=== PATIENT | male | born 1960 | race Caucasian/White ===

== ENCOUNTER 2023-03-20 13:15 | Observation (INO) | payer OTHER, SELFPAY ==
[2023-03-20] VITALS (29 sets, daily range): BP systolic 110–149; BP diastolic 68–95; PULSE 74–91; RESP 14–24; TEMP 36.6–36.8; O2SAT 93–98; BMI 27.3; BMI 28.1
--- NOTE | 2023-03-20 13:41 | CT_ITS ---
The [address] [address] Patient Name: OSCAR FELTON MRN: [id number] date: 1960 Sex: M Assigned Patient Location: ER Current Patient Location: ER Accession/Order Number: [id number] Exam Date: 03/20/2023 14:10 Report Date: 03/20/2023 15:13 At the request of: ALETHA CARRILLO Procedure: CT chest wo con CT chest wo con, 03/20/2023 2:10 PM EST INDICATION: Fall right wall trauma COMPARISON: No prior CT scan of the chest available for comparison at the time of this dictation. TECHNIQUE: Thin-section axial CT images of the chest were acquired without contrast. Supplemental 2D reformatted images were generated and reviewed as needed. Dose reduction techniques were achieved by using automated exposure control and/or adjustment of mA and/or kV according to patient size and/or use of iterative reconstruction technique. FINDINGS: Heart size within normal limits. Mitral valve replacement. No pericardial effusion. Heavy coronary artery calcification. No aortic aneurysm. No mediastinal, hilar or axillary lymphadenopathy. Calcified granuloma right upper lobe. Subsegmental atelectasis right middle lobe. Elevation of the right hemidiaphragm with atelectasis right lung base. No pleural effusion. No pneumothorax. Air-fluid level within the gastric lumen. Right cortical renal cyst and partially imaged dense right renal nodules. Nondisplaced anterior fractures right third, fourth and fifth ribs. Degenerative disc disease with chronic superior endplate compression deformities T5, T8 and T9 vertebral bodies. CT/CT chest wo con IMPRESSION: 1. Nondisplaced anterior fractures right third, fourth and fifth ribs. No pneumothorax. 2. Right basilar atelectasis. 3. Partially imaged dense right renal nodules. Please refer to concurrent CT of the abdomen and pelvis for further characterization of these findings. Electronically authenticated by: NOREEN ROMERO Date: 03/20/2023 15:13
--- NOTE | 2023-03-20 13:42 | CT_ITS ---
The [address] [address] Patient Name: OSCAR FELTON MRN: [id number] date: 1960 Sex: M Assigned Patient Location: ER Current Patient Location: Accession/Order Number: [id number] Exam Date: 03/20/2023 14:10 Report Date: 03/20/2023 15:00 At the request of: ALETHA CARRILLO Procedure: CT abdomen pelvis wo con EXAMINATION: CT abdomen pelvis wo con, 03/20/2023 2:10 PM EST HISTORY: Fall. COMPARISON: None. TECHNIQUE: CT scan of the abdomen and pelvis was performed without IV contrast. CT dose reduction technique was used, including Automated Exposure Control. FINDINGS: LOWER CHEST: There is mild bilateral symmetric gynecomastia. Elevation of the right hemidiaphragm. Right lower lobe subsegmental atelectasis. LIVER: Unremarkable. GALLBLADDER AND BILIARY SYSTEM: Unremarkable. SPLEEN: Unremarkable. PANCREAS: Unremarkable. ADRENAL GLANDS: Unremarkable. KIDNEYS AND URETERS: No nephrolithiasis or hydronephrosis. There is a hyperdense lesion in the midpole the right kidney measuring 2.9 x 2.6 cm which likely represents a hemorrhagic cyst. Additional adjacent hyperdense lesion in the midpole the right kidney measuring 1 cm. Evaluation of these lesions is limited due to the lack of intravenous contrast. Extensive bilateral perinephric stranding. There is no hydronephrosis. BLADDER: Unremarkable. GASTROINTESTINAL TRACT: There is sigmoid diverticulosis without evidence of diverticulitis. No evidence of bowel obstruction. A normal appendix is visualized. VASCULATURE: The abdominal aorta is normal in caliber. RETROPERITONEUM: No lymphadenopathy. PERITONEUM/MESENTERY: There is mild stranding at the root of the mesentery. No abdominal ascites or lymphadenopathy. PELVIS: Small fat-containing right inguinal hernia. No pelvic ascites or lymphadenopathy. BODY WALL: Small fat-containing umbilical hernia. BONES: There is an acute fracture involving the L1 vertebral body with cortical offset involving the superior and inferior endplates. Chronic appearing compression fracture deformities of T9 and T10. Grade 1 anterolisthesis of L3 on L4. Severe central canal stenosis at L3-4 and L4-5. CT/CT abdomen pelvis wo con IMPRESSION: 1. Acute fracture involving the L1 vertebral body with mild compression. There is no significant bony retropulsion. Chronic appearing compression fracture deformities of T9 and T10. 2. Probable hemorrhagic cyst in the right kidney which are suboptimally evaluated without intravenous contrast. Bilateral perinephric stranding. 3. Elevation of the right hemidiaphragm with right lower lobe subsegmental atelectasis or scarring. 4. Small fat-containing right inguinal hernia. Electronically authenticated by: MARLON WERNER Date: 03/20/2023 15:00
--- NOTE | 2023-03-20 13:42 | ECG_ITS ---
The [facility] Test Date: 2023-03-20 Pat Name: OSCAR FELTON Department: Room: - Gender: Male [employer]: : 1960 Requested By: Order Number: [id number] Reading MD: BECKIE TRISTAN Measurements Intervals [place] Rate: 74 P: 51 CO: 178 QRS: 45 QRSD: 88 T: 13 QT: 396 QTc: 423 Interpretive Statements 1100 Sinus rhythm 3614 Cannot rule out inferior myocardial infarction, age undetermined 8102 Low QRS voltage in chest leads 9150 abnormal ECG No previous ECG available for comparison Electronically Signed On 03-21-2023 6:48:30 EST by BECKIE TRISTAN
[2023-03-20] MEDS: KETOROLAC TROMETHAMINE 30 MG/ML VIAL 15 MG IVP (13:51)
[2023-03-20] MEDS: 0.9 % SODIUM CHLORIDE 1,000 ML 1000 ML IV ×2 (13:51→16:04)
[2023-03-20 14:12] LABS: Hematocrit 38.8 % (42.0-54.0); Hemoglobin 13.3 g/dL (14.0-18.0); Mean Corpuscular HGB Conc 34.3 g/dL (29.9-35.2); Mean Corpuscular Hemoglobin 31.5 pg (25.9-34.0); Mean Corpuscular Volume 91.9 fL (80.0-94.0); Mean Platelet Volume 8.5 fL (9.5-13.5); Platelet Count 184 10^3/uL (150-450); Red Blood Count 4.22 10^6/uL (4.70-6.10); Red Cell Distribution Width 12.6 % (11.0-15.0); White Blood Count 13.1 10^3/uL (4.0-11.0)
[2023-03-20 14:29] LABS: Alanine Aminotransferase 36 U/L (16-63); Albumin Level 3.3 g/dL (3.4-5.0); Alkaline Phosphatase 51 U/L (46-116); Anion Gap 14.1; Aspartate Amino Transferase 33 U/L (15-37); BUN Creatinine Ratio 10.9; Bilirubin Total 0.5 mg/dL (0.2-1.0); Calcium 7.5 mg/dL (8.5-10.1); Carbon Dioxide 26.9 mmol/L (21.0-32.0); Chloride 92 mmol/L (98-107); Estimated GFR (African America 28 (>=60); Estimated GFR (Non-African Ame 23 (>=60); Globulin 3.4 g/dL; Glucose 91 mg/dL (74-106); Magnesium 1.1 mg/dL (1.8-2.4); Sodium 129 mmol/L (136-145); Total Protein 6.7 g/dL (6.4-8.2); Troponin I High Sensitivity 9.4 pg/mL (4.0-76.1)
[2023-03-20 14:36] LABS: Band Neutrophils Absolute 0.8 10^3/uL (0.0-0.3); Segmented Neut Absolute Manual 10.08 10^3/uL (1.4-6.5)
[2023-03-20 14:37] LABS: Lymphocytes Absolute Manual 0.39 10^3/uL (1.20-3.80); Monocytes Absolute Manual 1.83 10^3/uL (0.30-0.80)
[2023-03-20] MEDS: MAGNESIUM SULFATE IN WATER 2 GM/50 ML PREMIX IV (15:06)
--- NOTE | 2023-03-20 15:23 | ED_ITS ---
HPI - Dizziness General Chief Complaint: Syncope Stated Complaint: BACK PAIN Time Seen by Provider: 03/20/23 13:32 Source: patient Mode of arrival: Wheelchair Limitations: no limitations History of Present Illness HPI Narrative: The patient coming to the ER with multiple complaints including the fact that he started having nausea vomiting and diarrhea since 2 days before arrival, he had mentioned that he had at least 7-8 bouts of diarrhea and nausea and vomiting, nonbloody, he mentioned that yesterday he was trying to stand up from the bed to go to the bathroom when he all of a sudden passed out and fell on the floor hitting the right side of his chest with the table, the patient also was complaining of back pain No weakness numbness or tingling in his legs no chest pain other than the right- sided the patient mentioned that the pain gets worse whenever he take a deep breath. The patient also denies any fever or chills. It was noted that the patient does take prednisone at home which puts him at risk for fracture. His beside him came to help him when he passed out it was only for few seconds during that time the patient had no involvement of his upper or lower extremity had no incontinence of urine or stool. Related Data Home Medications Medication Instructions Recorded Confirmed alendronate 70 mg tablet 70 mg PO .weekly 03/20/23 03/20/23 allopurinol 300 mg tablet 300 mg PO DAILY 03/20/23 03/20/23 celecoxib 100 mg capsule 100 mg PO DAILY 03/20/23 03/20/23 desmopressin 0.2 mg tablet 0.3 mg PO BEDTIME 03/20/23 03/20/23 gabapentin 300 mg capsule 300 mg PO TID 03/20/23 03/20/23 lisinopril 5 mg tablet 5 mg PO DAILY 03/20/23 03/20/23 metoprolol succinate 50 mg 50 mg PO DAILY 03/20/23 03/20/23 tablet,extended release 24 hr mirabegron 50 mg tablet,extended 50 mg PO DAILY 03/20/23 03/20/23 release 24 hr (Myrbetriq) omeprazole 40 mg capsule,delayed 40 mg PO DAILY 03/20/23 03/20/23 release pantoprazole 40 mg tablet,delayed 40 mg PO DAILY 03/20/23 03/20/23 release prednisone 2.5 mg tablet 5 mg PO DAILY 03/20/23 03/20/23 rosuvastatin 5 mg tablet 5 mg PO DAILY 03/20/23 03/20/23 tizanidine 4 mg tablet 1 mg PO DAILY 03/20/23 03/20/23 Allergies Allergy/AdvReac Type Severity Reaction Status Date / Time Penicillins Allergy Intermediate Verified 03/20/23 13:26 Review of Systems ROS Status of ROS 10 or more systems reviewed and unremark able except as noted in history and below [facility] Social History Smoking status: Never smoker Exam Narrative Exam Narrative: Nurses notes and vital signs reviewed and patient is not hypoxic. General: Well-appearing and in no apparent distress. Skin: Warm, dry, no pallor noted. No rash. Head: Normocephalic, atraumatic. Neck: Supple, non-tender. Eye: Pupils are equal, round and EOMI. No scleral icterus. Ears, Nose, Mouth, and Throat: TM are clear, no nasal mucosal hypertrophy. Oral mucosa is moist, no posterior oropharynx erythema, uvula is mid-line Cardiovascular: Regular Rate and Rhythm without murmur, gallop or rub. Respiratory: No accessory muscle use or respiratory distress. Lungs are clear to auscultation, no wheezing, rales or rhonchi Chest Wall: Tenderness upon palpation of the right anterior chest wall , there is no ecchymosis no open wounds Back: There is intervertebral line tenderness at the lower lumbar level. Musculoskeletal: normal ROM, no calf or popliteal tenderness, no lower extremity edema/swelling GI: Abdomen is soft, non-distended. Normal bowel sounds. No masses appreciated. No tenderness to palpation. No rebound, guarding, or rigidity noted. Neurological: A&O x4. No cranial nerve dysfunction observed. No truncal ataxia. Moves all extremities. Sensation intact. Psychiatric: Cooperative and interactive. Normal mood and affect. Constitutional Vital Signs, click to edit/add: Last Vital Signs Pulse 91 H 03/20/23 16:10 Resp 17 03/20/23 16:10 BP 149/95 H 03/20/23 16:05 Pulse Ox 96 03/20/23 16:10 O2 Del Method Room Air 03/20/23 13:40 Course Vital Signs Vital signs: Vital Signs Pulse Rate 74 03/20/23 13:22 Respiratory Rate 15 03/20/23 13:22 Pulse Oximetry 98 03/20/23 13:22 Pulse Rate 91 H 03/20/23 16:10 Respiratory Rate 17 03/20/23 16:10 Blood Pressure 149/95 H 03/20/23 16:05 Pulse Oximetry 96 03/20/23 16:10 Oxygen Delivery Method Room Air 03/20/23 13:40 MDM - Dizziness MDM Narrative Medical decision making narrative: Upon arrival the patient had a EKG showing sinus rhythm with heart rate of [address] elevation or depression CT of the abdomen as well as a CT of the chest shows multiple rib fracture on the right side including the third fourth and fifth Patient have L1 also compression fracture with no signs of pressure on the spinal cord and the patient have no weakness numbness or tingling down his legs. The patient blood workup showed that he have hyponatremia and acute kidney injury with 2.7 of creatinine the patient also had magnesium of 1.1 The patient initially was started on IV fluids. Due to the patient kidney injury will avoid any NSAIDs Will try to get stool sample but the patient did not give us a stool sample yet The patient case was discussed with Dr. Clay and he agreed on the above- mentioned plan Lab Data Labs: Lab Results 03/20/23 03/20/23 Range/Units 14:05 16:07 WBC 13.1 H (4.0-11.0) 10^3/uL RBC 4.22 L (4.70-6.10) 10^6/uL Hgb 13.3 L (14.0-18.0) g/dL Hct 38.8 L (42.0-54.0) % MCV 91.9 (80.0-94.0) fL MCH 31.5 (25.9-34.0) pg MCHC 34.3 (29.9-35.2) g/dL RDW 12.6 (11.0-15.0) % Plt Count 184 (150-450) 10^3/uL MPV 8.5 L (9.5-13.5) fL Seg Neuts % (Manual) 77.0 Band Neutrophils % 6.0 H (0-5) % Lymphocytes % (Manual) 3.0 L (20.5-60.0) % Monocytes % (Manual) 14.0 H (1.7-12.0) % Eosinophils % (Manual) 0.0 L (0.9-7.0) % Basophils % (Manual) 0.0 L (0.2-2.0) % Neutrophils # (Manual) 10.08 H (1.4-6.5) 10^3/uL Band Neutrophils # 0.8 H (0.0-0.3) 10^3/uL Lymphocytes # (Manual) 0.39 L (1.20-3.80) 10^3/uL Monocytes # (Manual) 1.83 H (0.30-0.80) 10^3/uL Eosinophils # (Manual) 0.00 (0.00-0.70) 10^3/uL Basophils # (Manual) 0.00 (0.00-0.10) 10^3/uL Sodium 129 L (136-145) mmol/L Potassium 4.0 (3.5-5.1) mmol/L Chloride 92 L (98-107) mmol/L Carbon Dioxide 26.9 (21.0-32.0) mmol/L Anion Gap 14.1 BUN 30.0 H (7.0-18.0) mg/dL Creatinine 2.76 H (0.70-1.30) mg/dL Est GFR ( Amer) 28 L (>=60) Est GFR (Non-Af Amer) 23 L (>=60) BUN/Creatinine Ratio 10.9 Glucose 91 (74-106) mg/dL Calcium 7.5 L (8.5-10.1) mg/dL Magnesium 1.1 L (1.8-2.4) mg/dL Total Bilirubin 0.5 (0.2-1.0) mg/dL AST 33 (15-37) U/L ALT 36 (16-63) U/L Alkaline Phosphatase 51 (46-116) U/L Troponin I High Sens 9.4 (4.0-76.1) pg/mL Total Protein 6.7 (6.4-8.2) g/dL Albumin 3.3 L (3.4-5.0) g/dL Globulin 3.4 g/dL Albumin/Globulin Ratio 1.0 Urine Color Yellow (YELLOW) Urine Clarity Clear (CLEAR) Urine pH 5.0 (5.0-9.0) Ur Specific [place] >=1.030 A (1.005-1.025) Urine Protein 30 A (NEG/TRACE) mg/dL Urine Glucose (UA) Negative (NEGATIVE) mg/dL Urine Ketones Trace A (NEGATIVE) mg/dL Urine Occult Blood Moderate A (NEGATIVE) Urine Nitrite Negative (NEGATIVE) Urine Bilirubin Negative (NEGATIVE) Urine Urobilinogen 0.2 (0.2-1.0) EU/dL Ur Leukocyte Esterase Negative (NEGATIVE) Discharge Plan Discharge Chief Complaint: Syncope Clinical Impression: Acute kidney injury, Gastroenteritis, Acute hyponatremia, Hypomagnesemia Multiple fractures of ribs Qualifiers: Encounter type: initial encounter Fracture type: closed Laterality: right Qualified Code(s): S22.41XA - Multiple fractures of ribs, right side, initial encounter for closed fracture Closed compression fracture of lumbar vertebra Qualifiers: Encounter type: initial encounter Lumbar vertebra fracture level: L1 Qualified Code(s): S32.010A - Wedge compression fracture of first lumbar vertebra, initial encounter for closed fracture Patient Disposition: Admitted as Observation Time of Disposition Decision: 16:25 Condition: Good
[2023-03-20 16:12] LABS: Bilirubin Urine NEGATIVE (NEGATIVE); Blood Urine MODERATE (NEGATIVE); Clarity Urine CLEAR (CLEAR); Color Urine YELLOW (YELLOW); Glucose Urine UA NEGATIVE (NEGATIVE); Ketones Urine TRACE mg/dL (NEGATIVE); Leukocyte Esterase Urine NEGATIVE (NEGATIVE); Nitrite Urine NEGATIVE (NEGATIVE); Protein Urine 30 mg/dL (NEG/TRACE); Specific Gravity Urine >=1.030 (1.005-1.025); Urobilinogen Urine 0.2 EU/dL (0.2-1.0)
[2023-03-20 16:13] LABS: Urine Microscopic Indicated YES
[2023-03-20 16:26] LABS: Bacteria Urine SMALL #/HPF (NONE SEEN); Mucus Urine TRACE (NONE SEEN); Squamous Epithelial Cell Urine FEW #/LPF (NONE/RARE); WBC Urine NONE SEEN #/HPF (NONE SEEN)
[2023-03-20 16:27] LABS: Cast Seen? SEEN #/LPF (NONE SEEN); Crystals Seen? None Seen #/HPF (None Seen); Hyaline Casts Urine FEW; Urine Culture Indicated YES
[2023-03-20] MEDS: HEPARIN SODIUM (PORCINE) 5,000 UNIT/ML VIAL 5000 UNIT SUBQ (18:48)
[2023-03-20] MEDS: OXYCODONE HCL 5 MG TABLET PO (18:48)
[2023-03-20] MEDS: ACETAMINOPHEN 325 MG TABLET 650 MG PO (18:48)
[2023-03-20] MEDS: LACTATED RINGER'S SOLUTION 1,000 ML 100 ML IV (18:49)
[2023-03-20] MEDS: GABAPENTIN 300 MG CAPSULE PO (21:23)
[2023-03-21] VITALS (11 sets, daily range): BP systolic 145–166; BP diastolic 85–109; PULSE 72–93; RESP 16–18; TEMP 36.4–36.7; O2SAT 95–96
[2023-03-21] MEDS: OXYCODONE HCL 5 MG TABLET PO ×3 (00:48→12:26)
[2023-03-21] MEDS: HEPARIN SODIUM (PORCINE) 5,000 UNIT/ML VIAL 5000 UNIT SUBQ (00:48)
[2023-03-21] MEDS: LACTATED RINGER'S SOLUTION 1,000 ML 100 ML IV (04:29)
[2023-03-21 05:42] LABS: Basophils Percent Auto 0.4 % (0.2-2.0); Eosinophils Percent Auto 0.2 % (0.9-7.0); Hematocrit 40.1 % (42.0-54.0); Hemoglobin 13.2 g/dL (14.0-18.0); Immature Granulocytes Abs Auto 0.23 10^3/uL (0.00-0.03); Immature Granulocytes Pct Auto 2.2 % (0.0-0.5); Lymphocytes Absolute Auto 1.5 10^3/uL (1.2-3.8); Mean Corpuscular HGB Conc 32.9 g/dL (29.9-35.2); Mean Corpuscular Volume 94.1 fL (80.0-94.0); Mean Platelet Volume 9.3 fL (9.5-13.5); Monocytes Absolute Auto 1.2 10^3/uL (0.3-0.8); Monocytes Percent Auto 11.2 % (1.7-12.0); Neutrophils Absolute Auto 7.5 10^3/uL (1.4-6.5); Platelet Count 204 10^3/uL (150-450); Red Blood Count 4.26 10^6/uL (4.70-6.10); Red Cell Distribution Width 12.6 % (11.0-15.0); White Blood Count 10.4 10^3/uL (4.0-11.0)
[2023-03-21 05:58] LABS: Alanine Aminotransferase 31 U/L (16-63); Albumin Level 3.2 g/dL (3.4-5.0); Alkaline Phosphatase 56 U/L (46-116); Anion Gap 13.1; Aspartate Amino Transferase 27 U/L (15-37); Bilirubin Total 0.4 mg/dL (0.2-1.0); Calcium 7.5 mg/dL (8.5-10.1); Carbon Dioxide 25.1 mmol/L (21.0-32.0); Chloride 99 mmol/L (98-107); Estimated GFR (African America 45 (>=60); Estimated GFR (Non-African Ame 37 (>=60); Globulin 3.3 g/dL; Glucose 81 mg/dL (74-106); Potassium 4.2 mmol/L (3.5-5.1); Sodium 133 mmol/L (136-145); Total Protein 6.5 g/dL (6.4-8.2)
[2023-03-21] MEDS: GABAPENTIN 300 MG CAPSULE PO (06:00)
[2023-03-21] MEDS: ACETAMINOPHEN 325 MG TABLET 650 MG PO (06:00)
[2023-03-21] MEDS: ATORVASTATIN CALCIUM 20 MG TABLET PO (09:45)
[2023-03-21] MEDS: ALLOPURINOL 300 MG TABLET PO (09:45)
[2023-03-21] MEDS: OXYBUTYNIN CHLORIDE 5 MG TAB XL 10 MG PO (09:46)
[2023-03-21] MEDS: OMEPRAZOLE 40 MG CAPSULE.DR PO (09:46)
[2023-03-21] MEDS: METOPROLOL SUCCINATE 50 MG TAB.ER.24H PO (09:46)
[2023-03-21] MEDS: PREDNISONE 5 MG TABLET PO (09:50)
--- NOTE | 2023-03-21 10:36 | CM.NOTE ---
Rounds made with Dr. Clay, pt will discharge to home today. Dr. Clay discussed with pt about repeat blood work this week and f/u with primary care doctor.
[2023-03-21] MEDS: 0.9 % SODIUM CHLORIDE 1,000 ML 500 ML IV (10:48)
--- NOTE | 2023-03-21 10:50 | P.HP_ITS ---
H&P: HPI History of Present Illness Chief complaint: BACK PAIN Narrative: HPI and hospital course: 62-year-old male was admitted last evening for acute kidney injury and dehydration, hyponatremia and syncope. Patient was in his usual state of health when he started to have nausea, multiple episodes of vomiting, inability to take by mouth/tolerate food/water past Tuesday. He also reports multiple episodes of watery diarrhea throughout the night. next day, patient stayed in bed all day because of generalized weakness, orthostatic dizziness. He had one episode of orthostatic syncope when he woke up in the middle of the night to use the restroom and passed out when he got out of his bed and fell on the side of his bed and hit on the right side of his chest and back Patient has good by mouth intake, nausea and vomiting resolved along with diarrhea. He feels well and denies orthostatic dizziness. He participated in physical therapy and did well. Stable for discharge. Instructed to return to Emergency Department if he experiences dizziness, persistent nausea or vomiting and/or diarrhea. Review of Systems ROS Status of ROS 10 or more systems reviewed and unremark able except as noted in history and below PFSH [facility] Medical History (Updated 03/21/23 @ 10:52 by Shaikh Danna MD) Osteoporosis ?M81.0 - Age-related osteoporosis without current pathological fracture (ICD- 10) Rheumatoid arthritis ?M06.9 - Rheumatoid arthritis, unspecified (ICD-10) HLD (hyperlipidemia) ?E78.5 - Hyperlipidemia, unspecified (ICD-10) HTN (hypertension) ?I10 - Essential (primary) hypertension (ICD-10) Surgical History (Updated 03/21/23 @ 10:52 by Shaikh Danna MD) H/O mitral valve repair ?Z98.890 - Other specified postprocedural states (ICD-10) Social History Smoking status: Never smoker Highest level of school completed/degree received: Associate degree: occupational, technical, vocational program Meds Home Medications and Allergies Home Medications Medication Instructions Recorded Confirmed Type alendronate 70 mg tablet 70 mg PO .weekly 03/20/23 03/20/23 History allopurinol 300 mg tablet 300 mg PO DAILY 03/20/23 03/20/23 History celecoxib 100 mg capsule 100 mg PO DAILY PRN pain 03/20/23 03/21/23 History desmopressin 0.2 mg tablet 0.3 mg PO BEDTIME 03/20/23 03/20/23 History gabapentin 300 mg capsule 300 mg PO TID 03/20/23 03/20/23 History lisinopril 5 mg tablet 5 mg PO DAILY 03/20/23 03/20/23 History metoprolol succinate 50 mg 50 mg PO DAILY 03/20/23 03/20/23 History tablet,extended release 24 hr mirabegron 50 mg tablet,extended 50 mg PO DAILY 03/20/23 03/20/23 History release 24 hr (Myrbetriq) omeprazole 40 mg capsule,delayed 40 mg PO DAILY 03/20/23 03/20/23 History release pantoprazole 40 mg tablet,delayed 40 mg PO DAILY 03/20/23 03/20/23 History release prednisone 2.5 mg tablet 5 mg PO DAILY 03/20/23 03/20/23 History rosuvastatin 5 mg tablet 5 mg PO DAILY 03/20/23 03/20/23 History tizanidine 4 mg tablet 4 mg PO .QHS PRN muscle spasticity 03/20/23 03/21/23 History Allergies Allergy/AdvReac Type Severity Reaction Status Date / Time Penicillins Allergy Intermediate Verified 03/20/23 13:26 Exam Constitutional Vital Signs, click to edit/add: Last Vital Signs Temp 97.6 F 03/21/23 07:27 Pulse 93 H 03/21/23 10:00 Resp 18 03/21/23 07:27 BP 161/96 H 03/21/23 07:27 Pulse Ox 96 03/21/23 07:27 O2 Del Method Room Air 03/21/23 07:27 Documenting provider has reviewed patient's vital signs: yes Common normals: no apparent distress and oriented x3 General appearance: cooperative [facility] Common normals: normocephalic and head/scalp atraumatic Head and scalp: normocephalic and atraumatic Eye Common normals: conjunctivae normal and no scleral icterus Conjunctiva: conjunctiva(e) normal Chest Other: chest wall tenderness along the right side Respiratory Common normals: normal respiratory effort and clear to auscultation bilaterally Effort & inspection: able to speak in complete sentences Auscultation: clear to auscultation bilaterally Cardio Common normals: regular rate, S1 normal heart sound and S2 normal heart sound Rate: regular rate Heart sounds: S1 normal and S2 normal GI Common normals: Normal to inspection, nondistended, normoactive bowel sounds present, soft to palpation, non-tender and no hepatosplenomegaly Palpation: soft and no hepatosplenomegaly Back & Pelvis Other: Tenderness ON exam in midline upper lumbar region Extremity Common normals: no clubbing, cyanosis or edema Neuro Common normals: oriented x3, moves all extremities and no focal motor deficits Psych Common normals: mental status grossly normal, denies hallucinations, denies homicidal ideation and denies suicidal ideation Results Labs Labs: Short CBC 03/20/23 03/21/23 Range/Units 14:05 04:39 WBC 13.1 H 10.4 (4.0-11.0) 10^3/uL Hgb 13.3 L 13.2 L (14.0-18.0) g/dL Hct 38.8 L 40.1 L (42.0-54.0) % Plt Count 184 204 (150-450) 10^3/uL BMP 03/20/23 03/21/23 14:05 04:39 Sodium 129 L 133 L Potassium 4.0 4.2 Chloride 92 L 99 Carbon Dioxide 26.9 25.1 BUN 30.0 H 28.0 H Creatinine 2.76 H 1.87 H Glucose 91 81 Calcium 7.5 L 7.5 L Liver Function 03/20/23 03/21/23 Range/Units 14:05 04:39 Total Bilirubin 0.5 0.4 (0.2-1.0) mg/dL AST 33 27 (15-37) U/L ALT 36 31 (16-63) U/L Alkaline Phosphatase 51 56 (46-116) U/L Albumin 3.3 L 3.2 L (3.4-5.0) g/dL Urine 03/20/23 Range/Units 16:07 Urine Color Yellow (YELLOW) Urine Clarity Clear (CLEAR) Urine pH 5.0 (5.0-9.0) Ur Specific [place] >=1.030 A (1.005-1.025) Urine Protein 30 A (NEG/TRACE) mg/dL Urine Glucose (UA) Negative (NEGATIVE) mg/dL Assessment and Plan Assessment and Plan (1) Acute hyponatremia: Assessment and Plan: Due to dehydration. Improved with IV hydration. (2) Syncope due to orthostatic hypotension: Assessment and Plan: Likely due to hypotension. No chest pain, shortness of breath, palpitations. No significant abnormality on EKG. (3) Gastroenteritis: Assessment and Plan: Likely viral gastroenteritis. Symptoms resolved. Tolerating by mouth intake. No diarrhea. Stable for discharge (4) Closed compression fracture of lumbar vertebra: Assessment and Plan: Pathological fracture from fall. Osteoporosis likely from chronic prednisone use. Pain is reasonably well controlled. Outpatient follow-up with orthopedic Qualifiers: Encounter type: initial encounter Lumbar vertebra fracture level: L1 Qualified Code(s): S32.010A - Wedge compression fracture of first lumbar vertebra, initial encounter for closed fracture (5) Multiple fractures of ribs: Assessment and Plan: Pain is reasonably controlled. Conservative measures. Qualifiers: Encounter type: initial encounter Fracture type: closed Laterality: right Qualified Code(s): S22.41XA - Multiple fractures of ribs, right side, initial encounter for closed fracture (6) Acute kidney injury: Assessment and Plan: Likely prerenal secondary to dehydration. Improved with IV hydration. Stable for discharge. Follow-up basic metabolic panel in one week sure renal injury has resolved. Asked patient to follow-up with PCP Patient also asked to stop Celexa until acute kidney injury resolves (7) HTN (hypertension): Assessment and Plan: hold Lisinopril until repeat BMP in one week. Resume lisinopril only after consultation with PCP Qualifiers: Hypertension type: primary hypertension Qualified Code(s): I10 - Essential (primary) hypertension (8) HLD (hyperlipidemia): Assessment and Plan: Continue statin Qualifiers: Hyperlipidemia type: unspecified Qualified Code(s): E78.5 - Hyperlip idemia, unspecified (9) Rheumatoid arthritis: Assessment and Plan: Follows up with rheumatology. On chronic prednisone. Qualifiers: Rheumatoid arthritis location: unspecified site Rheumatoid factor presence: unspecified presence Qualified Code(s): M06.9 - Rheumatoid arthritis, unspecified (10) Osteoporosis: Assessment and Plan: Tachycardia secondary to chronic prednisone therapy for rheumatoid arthritis. Using alendronate. Outpatient follow-up Qualifiers: Osteoporosis type: other Presence of current pathological fracture: with current pathological fracture Encounter type: subsequent encounter Fracture healing: with routine healing Qualified Code(s): M80.80XD - Other osteoporosis with current pathological fracture, unspecified site, subsequent encounter for fracture with routine healing (11) H/O mitral valve repair: Assessment and Plan: Patient gets annual echocardiogram. Last echo was in November. Stable. Follow with cardiology as outpatient
--- NOTE | 2023-03-21 12:59 | PC.NURSE ---
Old IV Site clear, catheter intact
--- NOTE | 2023-03-21 13:42 | PC.NURSE ---
Patient was discharged at 1:06 p.m. by wheelchair accompanied by family in private auto
== END 2023-03-21 13:05 | disposition home or self-care (01) ==
LOC: ER 16:25 → MS 17:12
PROVIDERS: Admitting Provider Internal Medicine; Emergency Provider Emergency Medicine; Visit Provider Internal Medicine
DX: N17.9 Acute kidney failure, unspecified (principal); E87.1 Hypo-osmolality and hyponatremia; E86.0 Dehydration; I95.1 Orthostatic hypotension; K52.9 Noninfective gastroenteritis and colitis, unspecified; S22.41XA Multiple fractures of ribs, right side, initial encounter for closed fracture; M80.88XA Other osteoporosis with current pathological fracture, vertebra(e), initial encounter for fracture; E83.42 Hypomagnesemia; I10 Essential (primary) hypertension; E78.5 Hyperlipidemia, unspecified; R00.0 Tachycardia, unspecified; M06.9 Rheumatoid arthritis, unspecified; W19.XXXA Unspecified fall, initial encounter; T38.0X5A Adverse effect of glucocorticoids and synthetic analogues, initial encounter; Z79.899 Other long term (current) drug therapy; Z98.890 Other specified postprocedural states
CPT/HCPCS: 36415; 71250; 74176; 80053; 81001; 83735; 84484; 85007; 85025; 85027; 87086; 87507; 93005; 94761; 96361; 96365; 96372; 96375; 97161; 97165; 97530; 99285; G0378; J1885; J3475; J7512